=== PATIENT | male | born 1970 | race Caucasian/White ===

== ENCOUNTER → 2020-07-21 10:41 | Outpatient (CLI) | payer OTHER, SELFPAY ==
--- NOTE | 2020-07-21 | DI.RAD.S_ITS ---
PROCEDURE: XR SHOULDER LT MIN 2V INDICATIONS: LEFT SHOULDER PAIN TECHNIQUE: 3. views of the shoulder were acquired. COMPARISON: None. FINDINGS: Bones: Chronic left clavicle fracture is noted which is healed and deformity. No acute fractures or dislocations. No suspicious bony lesions. Visualized ribs appear intact. Mild glenohumeral joint osteoarthritis. Soft tissues: No suspicious soft tissue calcifications. IMPRESSION: 1. Chronic left clavicle fracture healed in deformity. 2. Mild glenohumeral joint osteoarthritis. 3. No fracture. No acute osseous lesion. If symptoms and/or clinical suspicion for pathology persists, further assessment with advanced imaging (e.g. CT, MRI or bone scan) may be helpful. Dictated by: Lorna Meneses MD, PhD on 07/21/2020 at 16:44 Approved by: Lorna Meneses MD, PhD on 07/21/2020 at 16:45
== END ==
PROVIDERS: PCP Family Medicine; Referring Provider Family Medicine; Visit Provider Family Medicine
DX: M25.512 Pain in left shoulder (principal); M19.012 Primary osteoarthritis, left shoulder; S42.002S Fracture of unspecified part of left clavicle, sequela
CPT/HCPCS: 73030